=== PATIENT | female | born 1965 | race Two or more races ===

== ENCOUNTER 2024-05-22 12:19 | Emergency (ER) | payer MEDICAID, OTHER ==
[~2024-05-22] VITALS: Ht 157.5 cm; Wt 137.4 kg
[2024-05-22 13:16] LABS: Basophils # (auto) 0 10 ^3/uL (0-0.2); Basophils % (auto) 0.4 % (0.0-2.0); Eosinophils # (auto) 0.3 10 ^3/uL (0-0.8); Eosinophils % (auto) 3.2 % (0.0-7.0); Hematocrit 42.9 % (36.0-46.0); Hemoglobin 14.2 g/dL (12.2-16.2); Lymphocytes # (auto) 1.7 10 ^3/uL (0.4-5.4); Lymphocytes % (auto) 17.9 % (10.0-50.0); Mean Corpuscular Hemoglobin 30.5 pg (28.0-32.0); Mean Corpuscular Hgb Conc. 33.2 g/dL (32.0-36.0); Mean Corpuscular Volume 92.1 fL (80.0-100.0); Monocytes # (auto) 0.5 10 ^3/uL (0-1.3); Monocytes % (auto) 5.6 % (0.0-12.0); Neutrophils % (auto) 72.9 % (37.0-80.0); Platelet Count (auto) 265 10^3/uL (140-450); Red Blood Cells 4.66 10^6/uL (4.0-5.20); Red Cell Distribution Width 15.5 % (11.8-14.3); White Blood Cell 9.6 10^3/uL (4.4-10.8)
[2024-05-22 13:37] LABS: Alanine Aminotransferase 11 U/L (7-40); Alkaline Phosphatase 117 U/L (46-116); Anion Gap 6 (5-15); Aspartate Aminotransferase 19 U/L (13-40); Bilirubin, Total 0.3 mg/dL (0.2-1.0); Blood Urea Nitrogen 13 mg/dL (9-23); Calcium 9.7 mg/dL (8.7-10.4); Carbon Dioxide 22 mmol/L (20-30); Chloride 106 mmol/L (98-107); Glucose 134 mg/dL (74-106); Potassium 4.1 mmol/L (3.5-5.1); Sodium 134 mmol/L (136-145); Total Protein 7.9 g/dL (5.7-8.2)
[2024-05-22] MEDS: methylPREDNISolone SOD SUCC 125 MG/2 ML VL IV ONE (13:37)
[2024-05-22] MEDS: FAMOTIDINE (10MG/ML) 2ML VL IV ONE (13:37)
[2024-05-22] MEDS: diphenhdrAMINE HCL 50 MG/1 ML VL IV ONE (13:37)
[2024-05-22] MEDS: SODIUM CHLORIDE 0.9% 1,000 ML IV ONE (13:38)
[2024-05-22 13:43] VITALS: TEMP 98.3
[2024-05-22 13:45] VITALS: O2SAT 95
[2024-05-22 13:54] LABS: Urine Bacteria MOD /hpf (None Seen); Urine Blood Negative /uL (Negative); Urine Clarity Hazy (Clear); Urine Color Yellow (Yellow); Urine Mucus FEW (None Seen); Urine Protein, UAD TRACE (Negative); Urine Specific Gravity 1.026 (1.001-1.035); Urine Urobilinogen Normal (Negative); Urine WBC 7 /hpf (0 - 5); Urine pH 5.5 (5.0-9.0)
[2024-05-22] MEDS ORDERED: PRED20TA2 PO (14:36)
[2024-05-22 14:40] VITALS: BP 114/66; PULSE 73; RESP 16; O2SAT 95
== END 2024-05-22 14:45 | disposition home or self-care (01) ==
LOC: ER 12:19
DX: T78.40XA Allergy, unspecified, initial encounter (principal); Z79.899 Other long term (current) drug therapy; X58.XXXA Exposure to other specified factors, initial encounter
CPT/HCPCS: 36415; 80053; 81001; 85025; 93005; 96361; 96374; 96375; 99284; J1200; J2919; J3490; J7030